=== PATIENT | male | born 1985 | race Caucasian/White ===

== ENCOUNTER 2016-02-25 10:26 | Emergency (ER) | payer BC ==
[~2016-02-25] VITALS: Ht 188 cm; Wt 109.1 kg
[~2016-02-25 10:26] MED LIST: AMOXICILLIN/CLA1 TA1 PO; FLOMAX 0.40.4 MG/CAP PO; PERCOCET 325 MG1 TA2 PO; ULTRAM 50MG TAB50 MG PO; ZOFRAN ODT4 MG PO
[2016-02-25 10:27] VITALS: BP 150/94; PULSE 108; TEMP 98.7
[2016-02-25] MEDS ORDERED: PERCOCET 325 MG1 TA2 PO (10:30)
[2016-02-25] MEDS ORDERED: ASPIRIN 32325 MG/TAB PO (10:31)
[2016-02-25] MEDS ORDERED: OXYCONTIN15 MG PO (10:31)
[2016-02-25] MEDS ORDERED: COLACE 100100 MG/CAP PO (10:31)
[2016-02-25] MEDS ORDERED: NAPROXEN 3375 MG/TAB PO (10:32)
[2016-02-25] MEDS ORDERED: MULTI VITAMINS1 TAB PO (10:32)
[2016-02-25 11:27] LABS: BASO % 0.3 % (0.0-2.0); EOS # 0.3 (0.0-0.7); EOS % 3.8 % (0-4.0); GRAN # 5.5 (1.4-6.5); GRAN % 69.5 % (42.2-75.2); HEMOGLOBIN 13.7 g/dl (13.5-18.0); LYMPH # 1.5 (1.2-3.4); LYMPH % 18.9 % (20.0-51.0); MEAN CELL VOLUME 87 fl (80.0-100.0); MEAN CORPUSCULAR HEMOGLOBIN 29 pg (27.0-31.0); MEAN CORPUSCULAR HGB CONC 33 g/dl (33.0-37.0); MEAN PLATELET VOLUME 10.1 fl (7.4-10.4); MONO # 0.6 (0.1-0.6); MONO % 7.4 % (1.7-9.3); PLATELET COUNT 227 K/mm3 (130-400); RED BLOOD COUNT 4.71 M/mm3 (4.20-5.60); REDCELL DISTRIBUTION WIDTH-CV 12.4 % (11.5-14.5); WHITE BLOOD COUNT 7.9 K/mm3 (4.8-10.8)
[2016-02-25 11:31] LABS: INR 1.1 (0.8-3.0); PROTHROMBIN TIME 12.4 SECONDS (9.7-12.8)
[2016-02-25 11:36] LABS: ADJUSTED CALCIUM 9.6 mg/dL (8.4-10.2); ALBUMIN 4.2 gm/dL (3.5-5.0); BILIRUBIN,TOTAL 0.7 mg/dL (0.0-1.0); CALCIUM 9.8 mg/dL (8.4-10.2); CREATININE, serum 1.05 mg/dL (0.66-1.25); POTASSIUM 4.8 mmol/L (3.4-5.0); TOTAL PROTEIN 7.9 gm/dL (6.4-8.2)
[2016-02-25] MEDS ORDERED: XARELTO STARTER20 MG PO (12:14)
== END 2016-02-25 12:42 | disposition home or self-care (01) ==
LOC: COL.ER 10:26
PROVIDERS: Nurse Practitioner
DX: I97.89 Other postprocedural complications and disorders of the circulatory system, not elsewhere classified (principal); I82.431 Acute embolism and thrombosis of right popliteal vein; I82.441 Acute embolism and thrombosis of right tibial vein

== ENCOUNTER → 2016-08-06 | Outpatient (CLI) | payer BC ==
[~2016-08-06] MED LIST changes: +ASPIRIN 32325 MG/TAB PO; +COLACE 100100 MG/CAP PO; +MULTI VITAMINS1 TAB PO; +NAPROXEN 3375 MG/TAB PO; +OXYCONTIN15 MG PO; +XARELTO STARTER20 MG PO
== END ==
LOC: COL.RAD 08:15
DX: M17.12 Unilateral primary osteoarthritis, left knee (principal); S83.232A Complex tear of medial meniscus, current injury, left knee, initial encounter; M25.462 Effusion, left knee

== ENCOUNTER → 2016-12-02 | Outpatient (CLI) | payer BC | LOC: COL.VAS 10:14 | DX: R60.0 Localized edema (principal); M79.662 Pain in left lower leg ==

== ENCOUNTER 2017-06-01 03:26 | Observation (INO) | payer BC ==
[~2017-06-01] VITALS: Ht 190.5 cm; Wt 102.5 kg
[2017-06-01] VITALS (14 sets, daily range): BP systolic 105–132; BP diastolic 45–77; PULSE 57–91; TEMP 97.7–98.8
[2017-06-01 03:47] LABS: BASO % 0.2 % (0.0-2.0); EOS % 0.3 % (0-4.0); GRAN # 12.5 (1.4-6.5); GRAN % 84.8 % (42.2-75.2); HEMATOCRIT 42.5 % (42.0-52.0); HEMOGLOBIN 14.9 g/dl (13.5-18.0); LYMPH # 1.3 (1.2-3.4); LYMPH % 8.7 % (20.0-51.0); MEAN CELL VOLUME 83 fl (80.0-100.0); MEAN CORPUSCULAR HEMOGLOBIN 29 pg (27.0-31.0); MEAN CORPUSCULAR HGB CONC 35 g/dl (33.0-37.0); MEAN PLATELET VOLUME 10.3 fl (7.4-10.4); MONO # 0.8 (0.1-0.6); MONO % 5.7 % (1.7-9.3); PLATELET COUNT 230 K/mm3 (130-400); RED BLOOD COUNT 5.11 M/mm3 (4.20-5.60); REDCELL DISTRIBUTION WIDTH-CV 12.8 % (11.5-14.5)
[2017-06-01 03:53] LABS: COLLECTION METHOD CLEAN CATCH
[2017-06-01 03:56] LABS: ALBUMIN 4.4 gm/dL (3.5-5.0); BILIRUBIN,TOTAL 0.5 mg/dL (0.0-1.0); CALCIUM 9.5 mg/dL (8.4-10.2); CREATININE, serum 0.91 mg/dL (0.66-1.25); TOTAL PROTEIN 8.1 gm/dL (6.4-8.2)
[2017-06-01 03:59] LABS: MUCOUS Present /lpf; PH 5 (5-8); SQUAMOUS EPITHELIAL None Seen /hpf; URINE APPEARANCE Clear; URINE BACTERIA None Seen /hpf; URINE BILIRUBIN Negative (NEGATIVE); URINE BLOOD Negative (NEGATIVE); URINE COLOR Yellow; URINE GLUCOSE Negative (NEGATIVE); URINE KETONE Negative (NEGATIVE); URINE LEUKOCYTE ESTERASE Negative (NEGATIVE); URINE NITRATE Negative (NEGATIVE); URINE PROTEIN(semi-quant) Negative (NEGATIVE); URINE RBC 0-2 /hpf; URINE UROBILINOGEN Negative (NEGATIVE)
[2017-06-01] MEDS ORDERED: PERCOCET 325 MG1 TA2 PO (09:31)
[2017-06-01] MEDS ORDERED: MOTRIN 600600 MG/TAB PO (09:31)
[2017-06-01] MEDS ORDERED: COLACE 100100 MG/CAP PO (09:32)
[2017-06-02 00:15] VITALS: BP 108/56; PULSE 79; TEMP 98.5
[2017-06-02 03:54] VITALS: BP 109/57; PULSE 83; TEMP 98.5
[2017-06-02 10:00] VITALS: BP 135/77; PULSE 80; TEMP 98.5
== END 2017-06-02 14:00 | disposition home or self-care (01) ==
LOC: COL.ER 03:26 → SURG 04:25
PROVIDERS: Emergency Medicine
DX: K35.80 Unspecified acute appendicitis (principal)
CPT/HCPCS: G0378; J1100; J1170; J1885; J2250; J2270; J2405; J2543; J2704; J2710; J2765; J3010; J7030; J7120; Q9967